=== PATIENT | male | born 1960 | race Caucasian/White ===

== ENCOUNTER 2019-10-17 12:38 | Observation (INO) ==
[2019-10-17 13:56] LABS: Basophils % 0.3 %; Eosinophils % 0.3 %; Hematocrit 43.1 % (37.5-50.1); Hemoglobin 13.8 g/dL (12.9-16.9); Immature Granulocytes % 0.5 % (0-4); Lymphocytes # 0.7 K/mcL (0.6-4.6); Lymphocytes % 5.5 %; Mean Corpuscular Hemoglobin 28.1 pg (28.0-33.3); Mean Corpuscular Volume 87.8 fL (83.0-100.0); Mean Platelet Volume 10.6 fL (9.4-12.4); Monocytes # 0.7 K/mcL (0.0-1.3); Monocytes % 5.1 %; Neutrophils # 11.9 K/mcL (1.6-8.9); Platelet Count 236 K/mcL (140-400); Red Blood Count 4.91 M/mcL (4.19-5.50); Red Cell Distribution Width 16.6 % (11.5-14.5); Segmented Neutrophils % 88.3 %; White Blood Count 13.5 K/mcL (4.3-11.1)
[2019-10-17 14:13] LABS: BUN/Creatinine Ratio 33 (6-26); Blood Urea Nitrogen 29 mg/dL (8-23); Calcium 9.3 mg/dL (8.6-10.3); Carbon Dioxide 27 mEq/L (23-29); Chloride 102 mEq/L (98-107); Glucose 171 mg/dL (70-105); Osmolality,Calculated 294 (280-300); Potassium 3.8 mEq/L (3.5-5.1); Sodium 137 mEq/L (136-145); eGFR For African Americans > 60 (> 60); eGFR For Non-African Americans > 60 (> 60)
[2019-10-17 14:14] LABS: Troponin I < 0.03 ng/mL (< 0.04)
[2019-10-17 16:17] LABS: ABG Base Excess 3 mEq/L (-2 to 3); ABG HCO3 29 mEq/L (21-27); ABG Oxygen Saturation 93 % (95-98); ABG PCO2 47 mmHg (35-45); ABG PO2 70 mmHg (85-104); ABG TCO2 30 mEq/L (20-26)
[2019-10-17] MEDS: *HR* Enoxaparin 40 MG/0.4 ML SYRINGE SQ SCH ×2 (17:40→19:38)
[2019-10-17] MEDS ORDERED: Lactulose Oral Soln 20 GM/30 ML UDC PO PRN (18:19)
[2019-10-17] MEDS ORDERED: Lactulose Oral Soln 20 GM/30 ML UDC PO ONE (18:19)
[2019-10-17 18:21] LABS: Amphetamine Screen,Urine Negative ng/mL (Cutoff=1000); Barbiturate Screen,Urine Negative ng/mL (Cutoff=200); Benzodiazepines Screen,Urine Negative ng/mL (Cutoff=200); Cannabinoid Screen,Urine Negative ng/mL (Cutoff = 50); Cocaine Screen,Urine Negative ng/mL (Cutoff= 300); Opiate Screen,Urine Negative ng/mL (Cutoff=300); Phencyclidine Screen,Urine Negative ng/mL (Cutoff=25)
[2019-10-17 19:12] LABS: Alanine Aminotransferase 13 Units/L (7-52); Albumin 4.3 g/dL (3.5-5.7); Albumin/Globulin Ratio 1.3 (1.1-2.2); Alkaline Phosphatase 71 Units/L (34-104); Aspartate Amino Transferase 18 Units/L (13-39); Bilirubin,Direct 0.1 mg/dL (0.0-0.2); Bilirubin,Indirect 0.2 mg/dL (0.0-1.0); Bilirubin,Total 0.3 mg/dL (0.3-1.0); Ethanol < 10 mg/dL (Less than 10); Globulin 3.3 g/dL (2.4-3.5); Total Protein 7.6 g/dL (6.4-8.9)
[2019-10-17 19:26] LABS: Thyroid Stimulating Hormone 0.148 mcIU/mL (0.340-5.600)
[2019-10-17 19:29] LABS: Bilirubin,Urine Negative (Negative); Blood,Urine Negative (Negative); Clarity,Urine Clear (Clear); Color,Urine Yellow (Yellow); Glucose,Urine (UA) Normal (Normal); Ketones,Urine Negative (Negative); Leukocyte Esterase,Urine Negative (Negative); Nitrite,Urine Negative (Negative); Protein,Urine Negative (Neg-Trace); Specific Gravity,Urine 1.025 (1.010-1.025); Urobilinogen,Urine Normal (Normal)
[2019-10-17] MEDS ORDERED: 0.9 % Sodium Chloride 1,000 ML IV ONE (19:36)
[2019-10-17] MEDS: cefTRIAXone 1,000 MG in Water for inj. (sterile) 10 ML IVP SCH (19:38)
[2019-10-17] MEDS: Azithromycin 500 MG in 0.9 % Sodium Chloride 250 ML IVPB SCH (19:38)
[2019-10-17] MEDS ORDERED: D5% in Water 1,000 ML IVC PRN (19:46)
[2019-10-17] MEDS ORDERED: *HR* Dextrose 50 % in Water (Syg) 50 ML SYRINGE IVP PRN (19:46)
[2019-10-17] MEDS ORDERED: Dextrose Gel 15 GM/37.5 ML TUBE PO PRN ×2 (19:46)
[2019-10-17] MEDS: Divalproex (12 HR) 500 MG TABLET PO SCH (21:30)
[2019-10-17] MEDS: Pregabalin 75 MG CAPSULE PO SCH (21:30)
[2019-10-17] MEDS: traZODone 50 MG TABLET PO PRN (21:30)
[2019-10-17] MEDS: 0.9 % Sodium Chloride 1,000 ML IVC SCH ×2 (21:31→22:43)
[2019-10-17] MEDS: Insulin LISPRO 300 UNITS/3 ML VIAL SQ SCH (22:43)
[2019-10-18] MEDS: 0.9 % Sodium Chloride 1,000 ML IVC SCH (00:44)
[2019-10-18] MEDS ORDERED: predniSONE 20 MG TABLET PO SCH (09:00)
[2019-10-18] MEDS: Tiotropium 18 MCG inhalation IH SCH (09:25)
[2019-10-18] MEDS: Fluticasone Propionate Nasal 50 MCG/SPRAY BOTTLE NS SCH ×2 (09:32→12:38)
[2019-10-18] MEDS: Insulin LISPRO 300 UNITS/3 ML VIAL SQ SCH ×4 (09:32→19:57)
[2019-10-18] MEDS: Pregabalin 75 MG CAPSULE PO SCH ×2 (09:34→19:57)
[2019-10-18] MEDS: Aspirin Enteric Coated 81 MG Tablet PO SCH (09:35)
[2019-10-18] MEDS: MESALAMINE 1.2 GM PO SCH (09:35)
[2019-10-18] MEDS: Loratadine 10 MG TABLET PO SCH (09:35)
[2019-10-18 14:16] LABS: Estimated Average Glucose 123 mg/dl
[2019-10-18] MEDS: methylPREDNISolone 125 MG/2 ML VIAL IVP SCH ×2 (15:27→23:31)
[2019-10-18] MEDS: cefTRIAXone 1,000 MG in Water for inj. (sterile) 10 ML IVP SCH (18:44)
[2019-10-18] MEDS: *HR* Enoxaparin 40 MG/0.4 ML SYRINGE SQ SCH (18:45)
[2019-10-18] MEDS: Azithromycin 500 MG in 0.9 % Sodium Chloride 250 ML IVPB SCH (18:45)
[2019-10-18] MEDS: Divalproex (12 HR) 500 MG TABLET PO SCH (19:56)
[2019-10-18] MEDS: traZODone 50 MG TABLET PO PRN (19:57)
[2019-10-19 05:58] LABS: Hematocrit 42.9 % (37.5-50.1); Hemoglobin 13.8 g/dL (12.9-16.9); Mean Corpuscular HGB Conc 32.2 g/dL (31.6-35.5); Mean Corpuscular Hemoglobin 27.8 pg (28.0-33.3); Mean Corpuscular Volume 86.5 fL (83.0-100.0); Platelet Count 283 K/mcL (140-400); Red Blood Count 4.96 M/mcL (4.19-5.50); Red Cell Distribution Width 16.1 % (11.5-14.5); White Blood Count 8.3 K/mcL (4.3-11.1)
[2019-10-19 06:15] LABS: BUN/Creatinine Ratio 25 (6-26); Blood Urea Nitrogen 17 mg/dL (8-23); Calcium 9.2 mg/dL (8.6-10.3); Carbon Dioxide 26 mEq/L (23-29); Chloride 105 mEq/L (98-107); Glucose 151 mg/dL (70-105); Osmolality,Calculated 292 (280-300); Potassium 4.6 mEq/L (3.5-5.1); Sodium 139 mEq/L (136-145); eGFR For African Americans > 60 (> 60); eGFR For Non-African Americans > 60 (> 60)
[2019-10-19] MEDS: Insulin LISPRO 300 UNITS/3 ML VIAL SQ SCH (07:45)
[2019-10-19] MEDS: methylPREDNISolone 125 MG/2 ML VIAL IVP SCH (08:03)
[2019-10-19] MEDS: Pregabalin 75 MG CAPSULE PO SCH (08:04)
[2019-10-19] MEDS: MESALAMINE 1.2 GM PO SCH (08:04)
[2019-10-19] MEDS: Loratadine 10 MG TABLET PO SCH (08:04)
[2019-10-19] MEDS: Aspirin Enteric Coated 81 MG Tablet PO SCH (08:04)
[2019-10-19] MEDS: Tiotropium 18 MCG inhalation IH SCH (08:08)
[2019-10-19] MEDS: Fluticasone Propionate Nasal 50 MCG/SPRAY BOTTLE NS SCH (08:09)
[2019-10-19 08:17] VITALS: BP 154/89
== END 2019-10-19 11:04 | disposition home or self-care (01) ==
LOC: INPGRE 12:38 → EMEROOGRE 12:38 → INPGRE 15:32
PROVIDERS: ADMIT Family Medicine; ATTEND Family Medicine

== ENCOUNTER 2021-09-18 08:58 | Inpatient (IN) ==
[2021-09-18 10:43] LABS: Basophils # 0.1 K/mcL (0.0-0.2); Basophils % 0.3 %; Eosinophils # 0.4 K/mcL (0.0-0.6); Eosinophils % 0.9 %; Hematocrit 33.5 % (37.5-50.1); Hemoglobin 10.9 g/dL (12.9-16.9); Immature Granulocytes % 1.2 % (0-4); Lymphocytes # 1.8 K/mcL (0.6-4.6); Lymphocytes % 4.6 %; Mean Corpuscular HGB Conc 32.5 g/dL (31.6-35.5); Mean Corpuscular Hemoglobin 28.4 pg (28.0-33.3); Mean Corpuscular Volume 87.2 fL (83.0-100.0); Mean Platelet Volume 8.7 fL (9.4-12.4); Monocytes # 2.1 K/mcL (0.0-1.3); Monocytes % 5.2 %; Nucleated Red Blood Cells 0.1 /100 WBC (0); Platelet Count 552 K/mcL (140-400); Red Blood Count 3.84 M/mcL (4.19-5.50); Red Cell Distribution Width 14.7 % (11.5-14.5); Segmented Neutrophils % 87.8 %
[2021-09-18 10:50] LABS: INR 1.4; Prothrombin Time 15.9 Seconds (9.4-12.1)
[2021-09-18 10:53] LABS: White Blood Count 39.9 K/mcL (4.3-11.1)
[2021-09-18 10:54] LABS: Anisocytosis 1+ (Not Present); Platelet Estimate Normal (Normal); Poikilocytosis 1+ (Not Present)
[2021-09-18 10:58] LABS: Activated Partial Thrombo Time 33.5 Seconds (26.0-36.0)
[2021-09-18 11:02] LABS: Alanine Aminotransferase 11 Units/L (7-52); Albumin 2.8 g/dL (3.5-5.7); Albumin/Globulin Ratio 0.6 (1.1-2.2); Alkaline Phosphatase 113 Units/L (34-104); Aspartate Amino Transferase 11 Units/L (13-39); BUN/Creatinine Ratio 26 (6-26); Bilirubin,Total 0.4 mg/dL (0.3-1.0); Blood Urea Nitrogen 17 mg/dL (8-23); Calcium 9.2 mg/dL (8.6-10.3); Carbon Dioxide 29 mEq/L (23-29); Chloride 100 mEq/L (98-107); Globulin 4.5 g/dL (2.4-3.5); Glucose 104 mg/dL (70-105); Magnesium 1.5 mg/dL (1.6-2.6); Osmolality,Calculated 284 (280-300); Potassium 4.4 mEq/L (3.5-5.1); Sodium 136 mEq/L (136-145); Total Protein 7.3 g/dL (6.4-8.9); eGFR For African Americans > 60 (> 60); eGFR For Non-African Americans > 60 (> 60)
[2021-09-18] MEDS ORDERED: levoFLOXacin 750 MG/150 ML 750 MG/150 ML BAG IVPB ONE (11:10)
[2021-09-18] MEDS ORDERED: 0.9 % Sodium Chloride 500 ML IVC ONE ×2 (11:11→15:33)
[2021-09-18] MEDS ORDERED: Isovue-370 500 ML BOTTLE IVP ONE ×2 (12:41→22:28)
[2021-09-18] MEDS ORDERED: Ipratropium/Albuterol Neb 3 ML IH ONE ×3 (13:25→22:28)
[2021-09-18] MEDS ORDERED: 0.9 % Sodium Chloride 1,000 ML IVC ONE (13:31)
[2021-09-18] MEDS ORDERED: Ipratropium/Albuterol Neb 3 ML ONE (13:34)
[2021-09-18] MEDS ORDERED: *HR* Enoxaparin 40 MG/0.4 ML SYRINGE SQ ONE (18:22)
[2021-09-18 18:51] LABS: Adenovirus Not Detected (Not Detect); Bordetella Pertussis Not Detected (Not Detect); Chlamydophila pneumoniae Not Detected (Not Detect); Coronavirus 229E Not Detected (Not Detect); Coronavirus HKU1 Not Detected (Not Detect); Coronavirus NL63 Not Detected (Not Detect); Coronavirus OC43 Not Detected (Not Detect); Human Metapneumovirus Not Detected (Not Detect); Human Rhinovirus/Enterovirus Not Detected (Not Detect); Influenza A Subtype 2009 H1 Not Detected (Not Detect); Influenza B Not Detected (Not Detect); Mycoplasma pneumoniae Not Detected (Not Detect); Parainfluenza Virus 1 Not Detected (Not Detect); Parainfluenza Virus 2 Not Detected (Not Detect); Parainfluenza Virus 3 Not Detected (Not Detect); Parainfluenza Virus 4 Not Detected (Not Detect); Respiratory Syncytial Virus Not Detected (Not Detect); SARS-CoV-2 Not Detected (Not Detect)
[2021-09-18] MEDS ORDERED: Ondansetron 4 MG/2 ML VIAL IVP PRN (22:28)
[2021-09-18] MEDS ORDERED: Naloxone 0.4 MG/ML INJ IVP PRN (22:28)
[2021-09-18] MEDS ORDERED: Mag Hydrox/Al Hydrox/Simeth 30 ML UDC PO PRN (22:28)
[2021-09-18] MEDS ORDERED: Melatonin 3 MG TABLET PO PRN (22:28)
[2021-09-18 22:42] LABS: Basophils # 0.1 K/mcL (0.0-0.2); Basophils % 0.3 %; Eosinophils # 0.4 K/mcL (0.0-0.6); Eosinophils % 0.9 %; Hematocrit 32.5 % (37.5-50.1); Hemoglobin 10.5 g/dL (12.9-16.9); Immature Granulocytes % 1.5 % (0-4); Lymphocytes % 8.7 %; Mean Corpuscular HGB Conc 32.3 g/dL (31.6-35.5); Mean Corpuscular Hemoglobin 28.6 pg (28.0-33.3); Mean Corpuscular Volume 88.6 fL (83.0-100.0); Mean Platelet Volume 8.9 fL (9.4-12.4); Monocytes % 4.8 %; Nucleated Red Blood Cells 0.1 /100 WBC (0); Platelet Count 571 K/mcL (140-400); Red Blood Count 3.67 M/mcL (4.19-5.50); Red Cell Distribution Width 14.8 % (11.5-14.5); Segmented Neutrophils % 83.8 %
[2021-09-18 22:44] LABS: Lymphocytes # 3.5 K/mcL (0.6-4.6); White Blood Count 40.6 K/mcL (4.3-11.1)
[2021-09-18 22:47] LABS: Anisocytosis 1+ (Not Present); Poikilocytosis 1+ (Not Present)
[2021-09-18] MEDS ORDERED: traZODone 50 MG TABLET PO PRN (23:29)
[2021-09-18] MEDS: Divalproex (12 HR) 500 MG TABLET PO SCH (23:47)
[2021-09-19] MEDS ORDERED: traZODone 50 MG TABLET PO ONE (00:15)
[2021-09-19 05:40] LABS: Hematocrit 29.9 % (37.5-50.1); Hemoglobin 9.5 g/dL (12.9-16.9); Mean Corpuscular HGB Conc 31.8 g/dL (31.6-35.5); Mean Corpuscular Hemoglobin 28.1 pg (28.0-33.3); Mean Corpuscular Volume 88.5 fL (83.0-100.0); Mean Platelet Volume 9.6 fL (9.4-12.4); Platelet Count 521 K/mcL (140-400); Red Blood Count 3.38 M/mcL (4.19-5.50); Red Cell Distribution Width 14.9 % (11.5-14.5)
[2021-09-19 07:01] LABS: White Blood Count 32.2 K/mcL (4.3-11.1)
[2021-09-19] MEDS: Budesonide/Formoterol 160/4.5 1 PUFF INH IH SCH ×2 (08:00→21:56)
[2021-09-19] MEDS: Tiotropium 10 INH DOSE IH SCH (08:00)
[2021-09-19] MEDS: levoFLOXacin 750 MG/150 ML 750 MG/150 ML BAG IVPB SCH (10:31)
[2021-09-19] MEDS: Ibuprofen 800 MG TABLET PO PRN (17:08)
[2021-09-19] MEDS: *HR* Enoxaparin 40 MG/0.4 ML SYRINGE SQ SCH (17:08)
[2021-09-19] MEDS: traZODone 50 MG TABLET PO PRN (21:08)
[2021-09-19] MEDS: Divalproex (12 HR) 500 MG TABLET PO SCH (21:08)
[2021-09-19] MEDS: Amoxicillin 500 MG CAPSULE PO SCH (21:08)
[2021-09-20] MEDS: Ibuprofen 800 MG TABLET PO PRN ×2 (05:16→14:33)
[2021-09-20 05:32] LABS: Basophils # 0.1 K/mcL (0.0-0.2); Basophils % 0.6 %; Eosinophils # 0.8 K/mcL (0.0-0.6); Eosinophils % 3.6 %; Hematocrit 30.8 % (37.5-50.1); Hemoglobin 9.8 g/dL (12.9-16.9); Immature Granulocytes % 3.4 % (0-4); Lymphocytes # 3.8 K/mcL (0.6-4.6); Lymphocytes % 17.7 %; Mean Corpuscular HGB Conc 31.8 g/dL (31.6-35.5); Mean Platelet Volume 9.3 fL (9.4-12.4); Monocytes # 1.6 K/mcL (0.0-1.3); Monocytes % 7.6 %; Neutrophils # 14.3 K/mcL (1.6-8.9); Platelet Count 568 K/mcL (140-400); Red Cell Distribution Width 14.9 % (11.5-14.5); Segmented Neutrophils % 67.1 %; White Blood Count 21.3 K/mcL (4.3-11.1)
[2021-09-20 05:49] LABS: BUN/Creatinine Ratio 23 (6-26); Blood Urea Nitrogen 15 mg/dL (8-23); Calcium 9.2 mg/dL (8.6-10.3); Carbon Dioxide 30 mEq/L (23-29); Chloride 101 mEq/L (98-107); Glucose 89 mg/dL (70-105); Osmolality,Calculated 286 (280-300); Potassium 4.2 mEq/L (3.5-5.1); Sodium 138 mEq/L (136-145); eGFR For African Americans > 60 (> 60); eGFR For Non-African Americans > 60 (> 60)
[2021-09-20] MEDS: Amoxicillin 500 MG CAPSULE PO SCH ×2 (08:51→20:14)
[2021-09-20] MEDS: levoFLOXacin 750 MG/150 ML 750 MG/150 ML BAG IVPB SCH (08:53)
[2021-09-20] MEDS: Budesonide/Formoterol 160/4.5 1 PUFF INH IH SCH ×2 (09:04→20:07)
[2021-09-20] MEDS: Tiotropium 10 INH DOSE IH SCH (09:04)
[2021-09-20 09:19] LABS: Acinetobacter baumannii by PCR Not Detected (Not Detect); Candida albicans by PCR Not Detected (Not Detect); Candida glabrata by PCR Not Detected (Not Detect); Candida krusei by PCR Not Detected (Not Detect); Candida parapsilosis by PCR Not Detected (Not Detect); Candida tropicalis by PCR Not Detected (Not Detect); Enterobacter cloacae Cmplx PCR Not Detected (Not Detect); Enterobacteriaceae by PCR Not Detected (Not Detect); Enterococcus by PCR Not Detected (Not Detect); Escherichia coli by PCR Not Detected (Not Detect); Klebsiella oxytoca by PCR Not Detected (Not Detect); Klebsiella pneumoniae by PCR Not Detected (Not Detect); Proteus by PCR Not Detected (Not Detect); Pseudomonas aeruginosa by PCR Not Detected (Not Detect); Serratia marcescens by PCR Not Detected (Not Detect); Staphylococcus aureus by PCR Not Detected (Not Detect); Staphylococcus by PCR DETECTED (Not Detect); Streptococcus agalactiae(B)PCR Not Detected (Not Detect); Streptococcus by PCR Not Detected (Not Detect); Streptococcus pneumoniae PCR Not Detected (Not Detect); Streptococcus pyogenes (A) PCR Not Detected (Not Detect); mecA Methicillin-Resist Gene DETECTED (Not Detect)
[2021-09-20 14:52] LABS: Adenovirus Not Detected (Not Detect); Bordetella Pertussis Not Detected (Not Detect); Chlamydophila pneumoniae Not Detected (Not Detect); Coronavirus 229E Not Detected (Not Detect); Coronavirus HKU1 Not Detected (Not Detect); Coronavirus NL63 Not Detected (Not Detect); Coronavirus OC43 Not Detected (Not Detect); Human Metapneumovirus Not Detected (Not Detect); Human Rhinovirus/Enterovirus Not Detected (Not Detect); Influenza A Subtype 2009 H1 Not Detected (Not Detect); Influenza B Not Detected (Not Detect); Mycoplasma pneumoniae Not Detected (Not Detect); Parainfluenza Virus 1 Not Detected (Not Detect); Parainfluenza Virus 2 Not Detected (Not Detect); Parainfluenza Virus 3 Not Detected (Not Detect); Parainfluenza Virus 4 Not Detected (Not Detect); Respiratory Syncytial Virus Not Detected (Not Detect); SARS-CoV-2 Not Detected (Not Detect)
[2021-09-20] MEDS ORDERED: Vancomycin 1,250 MG/262.5 ML IV.SOLN IVPB ONE (16:00)
[2021-09-20] MEDS: *HR* Enoxaparin 40 MG/0.4 ML SYRINGE SQ SCH (17:16)
[2021-09-20] MEDS: traZODone 50 MG TABLET PO PRN (20:14)
[2021-09-20] MEDS: Divalproex (12 HR) 500 MG TABLET PO SCH (20:14)
[2021-09-21 06:26] LABS: Basophils # 0.2 K/mcL (0.0-0.2); Basophils % 0.6 %; Hematocrit 30.1 % (37.5-50.1); Hemoglobin 9.7 g/dL (12.9-16.9); Immature Granulocytes % 3.4 % (0-4); Lymphocytes # 3.1 K/mcL (0.6-4.6); Lymphocytes % 12.1 %; Mean Corpuscular HGB Conc 32.2 g/dL (31.6-35.5); Monocytes % 6.4 %; Neutrophils # 18.9 K/mcL (1.6-8.9); Platelet Count 614 K/mcL (140-400); Red Blood Count 3.46 M/mcL (4.19-5.50); Red Cell Distribution Width 14.9 % (11.5-14.5); Segmented Neutrophils % 73.5 %; White Blood Count 25.7 K/mcL (4.3-11.1)
[2021-09-21 06:33] LABS: Monocytes # 1.6 K/mcL (0.0-1.3)
[2021-09-21 06:41] LABS: BUN/Creatinine Ratio 25 (6-26); Blood Urea Nitrogen 16 mg/dL (8-23); Calcium 8.9 mg/dL (8.6-10.3); Carbon Dioxide 32 mEq/L (23-29); Chloride 101 mEq/L (98-107); Glucose 93 mg/dL (70-105); Osmolality,Calculated 287 (280-300); Potassium 3.8 mEq/L (3.5-5.1); Sodium 138 mEq/L (136-145); eGFR For African Americans > 60 (> 60); eGFR For Non-African Americans > 60 (> 60)
[2021-09-21] MEDS: Ibuprofen 800 MG TABLET PO PRN ×2 (08:17→20:33)
[2021-09-21] MEDS: levoFLOXacin 750 MG/150 ML 750 MG/150 ML BAG IVPB SCH (08:17)
[2021-09-21] MEDS: Tiotropium 10 INH DOSE IH SCH (11:30)
[2021-09-21] MEDS: Budesonide/Formoterol 160/4.5 1 PUFF INH IH SCH ×2 (11:31→20:00)
[2021-09-21] MEDS ORDERED: Isovue-370 500 ML BOTTLE IVP ONE (16:11)
[2021-09-21] MEDS: *HR* Enoxaparin 40 MG/0.4 ML SYRINGE SQ SCH (17:11)
[2021-09-21] MEDS: Divalproex (12 HR) 500 MG TABLET PO SCH (20:33)
[2021-09-21] MEDS: traZODone 50 MG TABLET PO PRN (20:34)
[2021-09-22 02:59] LABS: Basophils # 0.2 K/mcL (0.0-0.2); Basophils % 0.6 %; Eosinophils # 0.9 K/mcL (0.0-0.6); Eosinophils % 3.6 %; Hematocrit 28.9 % (37.5-50.1); Hemoglobin 9.3 g/dL (12.9-16.9); Immature Granulocytes % 3.2 % (0-4); Lymphocytes # 3.8 K/mcL (0.6-4.6); Lymphocytes % 15.6 %; Mean Corpuscular HGB Conc 32.2 g/dL (31.6-35.5); Mean Platelet Volume 8.7 fL (9.4-12.4); Monocytes # 1.7 K/mcL (0.0-1.3); Monocytes % 7.2 %; Neutrophils # 16.9 K/mcL (1.6-8.9); Platelet Count 575 K/mcL (140-400); Red Blood Count 3.32 M/mcL (4.19-5.50); Red Cell Distribution Width 14.9 % (11.5-14.5); Segmented Neutrophils % 69.8 %; White Blood Count 24.2 K/mcL (4.3-11.1)
[2021-09-22 03:16] LABS: BUN/Creatinine Ratio 22 (6-26); Blood Urea Nitrogen 14 mg/dL (8-23); Calcium 9.1 mg/dL (8.6-10.3); Carbon Dioxide 33 mEq/L (23-29); Chloride 97 mEq/L (98-107); Glucose 94 mg/dL (70-105); Osmolality,Calculated 274 (280-300); Potassium 4.1 mEq/L (3.5-5.1); Sodium 132 mEq/L (136-145); eGFR For African Americans > 60 (> 60); eGFR For Non-African Americans > 60 (> 60)
[2021-09-22] MEDS: Ibuprofen 800 MG TABLET PO PRN ×3 (04:37→20:38)
[2021-09-22] MEDS: levoFLOXacin 750 MG/150 ML 750 MG/150 ML BAG IVPB SCH (08:05)
[2021-09-22] MEDS: Tiotropium 10 INH DOSE IH SCH (09:08)
[2021-09-22] MEDS: Budesonide/Formoterol 160/4.5 1 PUFF INH IH SCH ×2 (09:08→20:22)
[2021-09-22] MEDS: Vancomycin 1,250 MG/262.5 ML IV.SOLN IVPB SCH (14:54)
[2021-09-22] MEDS: *HR* Enoxaparin 40 MG/0.4 ML SYRINGE SQ SCH (16:44)
[2021-09-22] MEDS: traZODone 50 MG TABLET PO PRN (20:38)
[2021-09-22] MEDS: Divalproex (12 HR) 500 MG TABLET PO SCH (20:38)
[2021-09-23] MEDS: Vancomycin 1,250 MG/262.5 ML IV.SOLN IVPB SCH (03:09)
[2021-09-23 05:43] LABS: Basophils # 0.2 K/mcL (0.0-0.2); Basophils % 0.9 %; Eosinophils % 5.2 %; Hematocrit 28.8 % (37.5-50.1); Hemoglobin 9.1 g/dL (12.9-16.9); Immature Granulocytes % 4.7 % (0-4); Lymphocytes # 3.8 K/mcL (0.6-4.6); Lymphocytes % 19.2 %; Mean Corpuscular HGB Conc 31.6 g/dL (31.6-35.5); Mean Corpuscular Hemoglobin 27.6 pg (28.0-33.3); Mean Corpuscular Volume 87.3 fL (83.0-100.0); Mean Platelet Volume 8.9 fL (9.4-12.4); Monocytes # 1.6 K/mcL (0.0-1.3); Monocytes % 8.2 %; Neutrophils # 12.3 K/mcL (1.6-8.9); Platelet Count 634 K/mcL (140-400); Segmented Neutrophils % 61.8 %; White Blood Count 19.9 K/mcL (4.3-11.1)
[2021-09-23 05:59] LABS: BUN/Creatinine Ratio 26 (6-26); Blood Urea Nitrogen 15 mg/dL (8-23); Calcium 8.8 mg/dL (8.6-10.3); Carbon Dioxide 31 mEq/L (23-29); Chloride 101 mEq/L (98-107); Glucose 75 mg/dL (70-105); Osmolality,Calculated 284 (280-300); Potassium 4.2 mEq/L (3.5-5.1); Sodium 137 mEq/L (136-145); eGFR For African Americans > 60 (> 60); eGFR For Non-African Americans > 60 (> 60)
[2021-09-23] MEDS: Budesonide/Formoterol 160/4.5 1 PUFF INH IH SCH (07:17)
[2021-09-23] MEDS: Tiotropium 10 INH DOSE IH SCH (07:18)
[2021-09-23 07:22] VITALS: RESP 18
[2021-09-23] MEDS: levoFLOXacin 750 MG/150 ML 750 MG/150 ML BAG IVPB SCH (09:24)
[2021-09-23] MEDS: Ibuprofen 800 MG TABLET PO PRN (09:41)
[2021-09-23 11:11] VITALS: BP 147/78; PULSE 93; TEMP 97.8; O2SAT 94
== END 2021-09-23 13:59 | disposition home or self-care (01) | DRG 194 ==
LOC: EMEROOGRE 08:58 → INPGRE 08:58
PROVIDERS: ADMIT Family Medicine; ATTEND Family Medicine